=== PATIENT | female | born 1980 ===

== ENCOUNTER → 2024-11-23 12:18 | Outpatient (CLI) | payer OTHER ==
[2024-11-23 12:44] LABS: ABG PH 7.431 (7.35-7.45); ABG PO2 91.1 mmHg (80-100); ABG pCO2 33.1 mmHg (35-45); BASE EXCESS -1.9 mmol/l; BICARBONATE 21.5 mmol/l (23-25); SaO2 97.2 %; Tco2 22.6 mmol/l; allen test SATISFACTORY; o2 21 %; puncture site RADIAL RIGHT
== END | disposition home or self-care (01) ==
LOC: LAB 12:18
PROVIDERS: ATTEND Internal Medicine Pulmonary Disease
DX: J45.30 Mild persistent asthma, uncomplicated (principal)